=== PATIENT | female | born 1995 | race Caucasian/White ===

== ENCOUNTER 2019-08-18 14:51 | Emergency (ER) | payer OTHER ==
[~2019-08-18] VITALS: Ht 160 cm; Wt 53.0 kg
[2019-08-18 15:49] LABS: BASO % 0 % (0-3); EOS % 0 % (0-3); HEMATOCRIT 39.5 % (36.0-47.0); HEMOGLOBIN 12.8 g/dL (12.0-15.5); LYMPH # 2.2 x10^3/uL (1.0-4.8); LYMPH % 17 % (24-48); MEAN CORPUSCULAR HEMOGLOBIN 29 pg (25-35); MEAN CORPUSCULAR HGB CONC 32 g/dL (31-37); MEAN CORPUSCULAR VOLUME 89 fL (79-100); MONO # 0.6 x10^3/uL (0.0-1.1); MONO % 5 % (0-9); NEUT # 9.7 x10^3uL (1.8-7.7); NEUT % 78 % (31-73); PLATELET COUNT 267 x10^3/uL (140-400); RED BLOOD COUNT 4.46 x10^6/uL (3.50-5.40); RED CELL DISTRIBUTION WIDTH 12.5 % (11.5-14.5); WHITE BLOOD COUNT 12.5 x10^3/uL (4.0-11.0)
[2019-08-18 15:56] LABS: CREATININE 0.7 mg/dL (0.6-1.0); GFR 103.7; POTASSIUM 3.5 mmol/L (3.5-5.1)
[2019-08-18 16:01] LABS: BACTERIA,URINE 0 /HPF (0-FEW); BILIRUBIN,URINE NEG (NEG); CLARITY,URINE CLEAR; COLOR,URINE YELLOW; GLUCOSE,URINE NEG (NEG); NITRITE,URINE NEG (NEG); RBC,URINE 20-40 /HPF (0-2); SQUAMOUS EPITHELIAL CELL,UR OCC /LPF; UROBILINOGEN,URINE 0.2 mg/dL (0.2 mg/dL); WBC,URINE OCC /HPF (0-4)
[2019-08-18 16:02] LABS: ALBUMIN 3.6 g/dL (3.4-5.0); TOTAL BILIRUBIN 0.7 mg/dL (0.2-1.0); TOTAL PROTEIN 7.1 g/dL (6.4-8.2)
[2019-08-18] MEDS ORDERED: IV NORMAL SALINE 1,000ML 1,000 ML IV ONE (16:15)
--- NOTE | 2019-08-18 16:26 | PHYS DOC ---
Past History Past Medical History: Ovarian Cyst Past Surgical History: No Surgical History Alcohol Use: Occasionally Social History Narrative: stopped drinking with poss positive test Adult General Chief Complaint Chief Complaint: ABDOMINAL PAIN HPI HPI Patient is a 24-year-old female presented ER today for evaluation of lower abdominal pain with vaginal bleeding. Patient said her last menstrual period was on july 23 last month. Patient stop her control medication on June last year, she is trying to get . Patient started having some spotting 3 days ago, she did home test today and noted that there is slightly positive so she came here for evaluation. Patient denies any fever. She had some cramping in her lower abdominal area. She denies any fever, no nausea vomiting. Review of Systems Review of Systems Constitutional: Denies fever or chills [] Eyes: Denies change in visual acuity, redness, or eye pain [] HENT: Denies nasal congestion or sore throat [] Respiratory: Denies cough or shortness of breath [] Cardiovascular: No additional information not addressed in HPI [] GI: Positive for abdominal pain, no nausea, vomiting, bloody stools or diarrhea [] : Denies dysuria or hematuria [] Musculoskeletal: Denies back pain or joint pain [] Integument: Denies rash or skin lesions [] Neurologic: Denies headache, focal weakness or sensory changes [] Endocrine: Denies polyuria or polydipsia [] All other systems were reviewed and found to be within normal limits, except as documented in this note. Current Medications Current Medications Current Medications Medications (Trade) Dose Ordered Sig/Franci Start Time Stop Time Status Last Admin Dose Admin Sodium Chloride 1,000 ml @ 1,000 mls/hr 1X ONCE 08/18/19 16:15 08/18/19 17:14 08/18/19 16:08 1,000 MLS/HR Allergies Allergies Allergies Coded Allergies Type Severity Reaction Last Updated Verified doxycycline Allergy Unknown 08/18/19 Yes Physical Exam Physical Exam Constitutional: Well developed, well nourished, no acute distress, non-toxic appearance. [] HENT: Normocephalic, atraumatic, bilateral external ears normal, oropharynx moist, no oral exudates, nose normal. [] Eyes: PERRLA, EOMI, conjunctiva normal, no discharge. [] Neck: Normal range of motion, no tenderness, supple, no stridor. [] Cardiovascular:Heart rate regular rhythm, no murmur [] Lungs & Thorax: Bilateral breath sounds clear to auscultation [] Abdomen: Bowel sounds normal, soft, There is tenderness to palpation at suprapubic area, no masses, no pulsatile masses. [] Skin: Warm, dry, no erythema, no rash. [] Back: No tenderness, no CVA tenderness. [] Extremities: No tenderness, no cyanosis, no clubbing, ROM intact, no edema. [] Neurologic: Alert and oriented X 3, normal motor function, normal sensory function, no focal deficits noted. [] Psychologic: Affect normal, judgement normal, mood normal. [] Current Patient Data Vital Signs Vital Signs Date Time Temp Pulse Resp B/P (MAP) Pulse Ox O2 Delivery O2 Flow Rate FiO2 08/18/19 15:50 67 20 112/67 (82) 99 Room Air 08/18/19 15:00 97.3 Lab Results Laboratory Tests Test 08/18/19 15:17 08/18/19 15:27 08/18/19 15:29 Urine Collection Type Unknown Urine Color Yellow Urine Clarity Clear Urine pH 6.0 Urine Specific [place] >=1.030 Urine Protein Neg (NEG-TRACE) Urine Glucose (UA) Neg mg/dL (NEG) Urine Ketones (Stick) Neg mg/dL (NEG) Urine Blood Large (NEG) Urine Nitrite Neg (NEG) Urine Bilirubin Neg (NEG) Urine Urobilinogen Dipstick 0.2 mg/dL (0.2 mg/dL) Urine Leukocyte Esterase Neg (NEG) Urine RBC 20-40 /HPF (0-2) Urine WBC Occ /HPF (0-4) Urine Squamous Epithelial Cells Occ /LPF Urine Bacteria 0 /HPF (0-FEW) Urine Mucus Slight /LPF POC Urine HCG, Qualitative hcg negative (Negative) White Blood Count 12.5 x10^3/uL (4.0-11.0) H Red Blood Count 4.46 x10^6/uL (3.50-5.40) Hemoglobin 12.8 g/dL (12.0-15.5) Hematocrit 39.5 % (36.0-47.0) Mean Corpuscular Volume 89 fL (79-100) Mean Corpuscular Hemoglobin 29 pg (25-35) Mean Corpuscular Hemoglobin Concent 32 g/dL (31-37) Red Cell Distribution Width 12.5 % (11.5-14.5) Platelet Count 267 x10^3/uL (140-400) Neutrophils (%) (Auto) 78 % (31-73) H Lymphocytes (%) (Auto) 17 % (24-48) L Monocytes (%) (Auto) 5 % (0-9) Eosinophils (%) (Auto) 0 % (0-3) Basophils (%) (Auto) 0 % (0-3) Neutrophils # (Auto) 9.7 x10^3uL (1.8-7.7) H Lymphocytes # (Auto) 2.2 x10^3/uL (1.0-4.8) Monocytes # (Auto) 0.6 x10^3/uL (0.0-1.1) Eosinophils # (Auto) 0.0 x10^3/uL (0.0-0.7) Basophils # (Auto) 0.0 x10^3/uL (0.0-0.2) Maternal Serum HCG Beta Subunit < 1 mIU/mL (0-6) Sodium Level 139 mmol/L (136-145) Potassium Level 3.5 mmol/L (3.5-5.1) Chloride Level 103 mmol/L (98-107) Carbon Dioxide Level 26 mmol/L (21-32) Anion Gap 10 (6-14) Blood Urea Nitrogen 16 mg/dL (7-20) Creatinine 0.7 mg/dL (0.6-1.0) Estimated GFR (Cockcroft-Gault) 103.7 BUN/Creatinine Ratio 23 (6-20) H Glucose Level 119 mg/dL (70-99) H Calcium Level 8.0 mg/dL (8.5-10.1) L Total Bilirubin 0.7 mg/dL (0.2-1.0) Aspartate Amino Transferase (AST) 16 U/L (15-37) Alanine Aminotransferase (ALT) 31 U/L (14-59) Alkaline Phosphatase 51 U/L (46-116) Total Protein 7.1 g/dL (6.4-8.2) Albumin 3.6 g/dL (3.4-5.0) Albumin/Globulin Ratio 1.0 (1.0-1.7) EKG EKG [] Radiology/Procedures Radiology/Procedures [][address] [address] IMAGING REPORT Signed PATIENT: MARÍA LORENZANACOUNT: [id number] : 1995 LOCATION: ER AGE: 24 SEX: F EXAM STATUS: REG ER ORD. PHYSICIAN: BAKARI DE LEÓN DO REASON: LOWER ABDOMINAL PAIN PROCEDURE: CT ABD PELV W/ IV CONTRST ONLY CT ABD PELV W/ IV CONTRST ONLY Indication: Lower abdominal pain and cramping. Vaginal bleeding. Exposure: One or more of the following individualized dose reduction techniques were utilized for this examination: 1. Automated exposure control 2. Adjustment of the mA and/or kV according to patient size 3. Use of iterative reconstruction technique. Technique: Intravenous contrast was given. No oral contrast per request. Comparison: None FINDINGS: Lung bases are clear. No focal liver lesion. Mild low-attenuation zone surrounding portal veins diffusely (periportal halo sign). Spleen unremarkable. Pancreas appears unremarkable. No evidence of adrenal mass. Kidneys demonstrate symmetric enhancement without hydronephrosis or focal mass. Gallbladder is contracted, without calcified stone. Aorta is nonaneurysmal. No significant lymph node enlargement is identified. Stomach is not distended. No significant small bowel distention. Distal small bowel loops are mildly fluid-filled. Moderate stool within the colon. No evidence of acute colitis. The appendix is not clearly visualized. Trace free pelvic fluid. This could just be physiologic. Mild urinary bladder wall thickening, fairly uniform and possibly due to nondistention. No definite pelvic mass. Vertebral body height is maintained. Minimal retrolisthesis of L4 on L5, likely degenerative. No aggressive bone destruction. IMPRESSION: 1. Mild periportal hypoattenuation. This is nonspecific with a broad differential but common etiologies could include congestion or hepatitis. Correlate clinically. 2. Mild fluid distention of distal small bowel loops, possibly a mild ileus. No obstructive bowel gas pattern. 3. Trace free pelvic fluid, probably physiologic. Electronically signed by: Ruddy Joseph MD (08/18/2019 5:03 PM) [id number] DICTATED AND SIGNED BY: RUDDY JOSEPH MD DATE: 08/18/19 5612 CC: CARLOS A BEATTY MD; DE LEÓN,PETER T DO ~ Course & Med Decision Making Course & Med Decision Making Pertinent Labs and Imaging studies reviewed. (See chart for details) Patient is a 24-year-old female who was evaluated today due to abdominal pain and menstruation cramping. She is not , CT scan of abdomen and pelvic did not reveal any acute problem. She will be discharged home, she will need to follow with her family doctor for further evaluation if her symptoms do not improve. Dragon Disclaimer Dragon Disclaimer This electronic medical record was generated, in whole or in part, using a voice recognition dictation system. Departure Departure: Impression: Primary Impression: Abdominal pain Disposition: HOME, SELF-CARE Condition: STABLE Referrals: CARLOS A BEATTY MD (PCP) please follow up with your doctor in a few days if you are not improved.. Patient Instructions: Abdominal Pain Additional Instructions: Thank you for visiting our Emergency Department. We appreciate you trusting us with your care. If any additional problems come up don't hesitate to return to visit us. Please follow up with your primary care provider so they can plan additional care if needed and know about the problem that you had. If symptoms worsen come back to the Emergency Department. Any concerning symptoms that start such as chest pain, shortness of air, weakness or numbness on one side of the body, running high fevers or any other concerning symptoms return to the ER. BAKARI DE LEÓN DO Aug 18, 2019 16:26
[2019-08-18] MEDS ORDERED: CONTRAST GIVEN MC PRN (16:30)
[2019-08-18] MEDS ORDERED: IOHEXOL 300 MG/ML 75 ML VIAL. IV ONE (16:30)
--- NOTE | 2019-08-18 17:06 | RAD ---
CT ABD PELV W/ IV CONTRST ONLY Indication: Lower abdominal pain and cramping. Vaginal bleeding. Exposure: One or more of the following individualized dose reduction techniques were utilized for this examination: 1. Automated exposure control 2. Adjustment of the mA and/or kV according to patient size 3. Use of iterative reconstruction technique. Technique: Intravenous contrast was given. No oral contrast per request. Comparison: None FINDINGS: Lung bases are clear. No focal liver lesion. Mild low-attenuation zone surrounding portal veins diffusely (periportal halo sign). Spleen unremarkable. Pancreas appears unremarkable. No evidence of adrenal mass. Kidneys demonstrate symmetric enhancement without hydronephrosis or focal mass. Gallbladder is contracted, without calcified stone. Aorta is nonaneurysmal. No significant lymph node enlargement is identified. Stomach is not distended. No significant small bowel distention. Distal small bowel loops are mildly fluid-filled. Moderate stool within the colon. No evidence of acute colitis. The appendix is not clearly visualized. Trace free pelvic fluid. This could just be physiologic. Mild urinary bladder wall thickening, fairly uniform and possibly due to nondistention. No definite pelvic mass. Vertebral body height is maintained. Minimal retrolisthesis of L4 on L5, likely degenerative. No aggressive bone destruction. IMPRESSION: 1. Mild periportal hypoattenuation. This is nonspecific with a broad differential but common etiologies could include congestion or hepatitis. Correlate clinically. 2. Mild fluid distention of distal small bowel loops, possibly a mild ileus. No obstructive bowel gas pattern. 3. Trace free pelvic fluid, probably physiologic. Electronically signed by: Ruddy Joseph MD (08/18/2019 5:03 PM) [id number]
[2019-08-18 17:18] VITALS: BP 110/56
== END 2019-08-18 17:30 | disposition home or self-care (01) ==
LOC: ER 14:51
DX: R10.30 Lower abdominal pain, unspecified (principal); N93.9 Abnormal uterine and vaginal bleeding, unspecified; Z88.1 Allergy status to other antibiotic agents
CPT/HCPCS: 36415; 74177; 80053; 81001; 81025; 84702; 85025; 99285; Q9967; J7030

== ENCOUNTER 2021-04-19 07:39 | Emergency (ER) | payer OTHER ==
[~2021-04-19] VITALS: Ht 160 cm; Wt 61.1 kg
--- NOTE | 2021-04-19 08:01 | PHYS DOC ---
Past History Past Medical History: Ovarian Cyst Past Medical History irregular periods Past Surgical History: No Surgical History Alcohol Use: Rarely General Adult EDM: Chief Complaint: MECHANICAL FALL HPI: HPI: 25-year-old female presents to the emergency department after a mechanical slip and fall at her home earlier today where she fell backwards, landing on her neck and tailbone area. She complains of pain over her tailbone as well as the back of her neck from the fall. She denies any head trauma, loss of consciousness, blood thinner use. She further denies any pain anywhere else. She denies chance of . Has not taken anything for pain this morning. The patient denies nausea, vomiting, fever, chills, chest pain, shortness of breath, abdominal pain, or any other complaints. Review of Systems: Review of Systems: ROS is otherwise negative except for what was mentioned in the HPI Family History: Family History: Noncontributory Allergies: Allergies: Allergies Coded Allergies Type Severity Reaction Last Updated Verified doxycycline Allergy Unknown 08/18/19 Yes Physical Exam: PE: Constitutional: No acute distress, non-toxic appearance. HENT: Atraumatic, bilateral external ears normal, nose normal. Eyes: PERRLA, EOMI, conjunctiva normal, no discharge. Neck: Normal range of motion, supple, no stridor. No cervical spinal tenderness to palpation Cardiovascular: Heart rate regular rhythm. 2+ radial pulses Lungs & Thorax: No respiratory distress, symmetrical expansion. Abdomen: Soft, no tenderness Skin: Warm, dry. Extremities: No tenderness, no cyanosis, ROM intact, no edema. Neurologic: Alert and oriented X 3, normal motor function, normal sensory function, no focal deficits noted. Non ataxic gait. GCS 15. Psychologic: Affect normal, judgment normal, mood normal. Current Patient Data: Vital Signs: Vital Signs Date Time Temp Pulse Resp B/P (MAP) Pulse Ox O2 Delivery O2 Flow Rate FiO2 04/19/21 07:43 98.0 80 16 130/79 (96) 96 Room Air Radiology/Procedures: Radiology/Procedures: XR SACRUM AND COCCYX 2+VIEWS History: Trauma, fall and tailbone pain. Comparison: CT abdomen and pelvis 08/18/2019 Technique: 3 views of the sacrum and coccyx. Findings: Osseous mineralization is normal. There are irregular lucencies through the fir st and second coccygeal segments with posterior endplate irregularity at the second coccygeal segment seen on the lateral view. This is new from comparison CT. The sacrococcygeal alignment is unchanged from prior. Hips and pubic rami are intact. Lower lumbar spine as unremarkable. No significant degenerative changes. Soft tissues are unremarkable. Impression: 1. Irregular appearance of the first and second coccygeal segments concerning for fracture. Electronically signed by: Lionel García MD (04/19/2021 8:54 AM). T CERVICAL SPINE WO dated 04/19/2021 8:39 AM Indication:Reason: TRAUMA- FELL, RIGHT SIDED NECK PAIN / Spl. Instructions: / History: Comparison: No comparison is available. Technique: Helical noncontrast images were performed. Sagittal and coronal reconstructions were obtained. One or more of the following individualized dose reduction techniques were utilized for this examination: 1. Automated exposure control 2. Adjustment of the mA and/or kV according to patient size 3. Use of iterative reconstruction technique Findings: Alignment is normal. There is no loss of vertebral body height or prevertebral soft tissue swelling. No fracture line is seen. Intervertebral disks are not narrowed. Evaluation of the soft tissue components of the canal is limited without intrathecal contrast. There is no apparent destructive process. IMPRESSION: No acute abnormality. Electronically signed by: Bob Perrin Jr., MD (04/19/2021 8:50 AM) Heart Score: C/O Chest Pain: No Course & Med Decision Making: Course & Med Decision Making Patient with a fracture of the coccyx on imaging, her neck scan was negative, she was discharged with instructions to follow-up with primary care physician as needed Departure Departure: Impression: Primary Impression: Fracture of coccyx Additional Impression: Neck contusion Disposition: 01 HOME / SELF CARE / HOMELESS Condition: STABLE Referrals: CARLOS A BEATTY MD (PCP) Patient Instructions: Tailbone Injury, [id number] Additional Instructions: You are seen in the emergency department for a fractured coccyx or tailbone. Please go to [facility] or [facility] and warehouse picker a donut pillow for you to sit on. You may use ice as needed and ibuprofen and Tylenol as needed for pain every 4-6 hours. Please follow-up with your primary care provider in the next week for further treatment You were seen in the emergency department and your health condition was deemed not to require admission to the hospital. It is important to realize that we can only evaluate you during the time that you are in her department. Occasionally health conditions can worsen upon leaving the emergency department. If this were to happen, please return to and allow us the opportunity to reevaluate you. It is a pleasure to take care of your health needs. Return to the ER if your symptoms worsen, do not improve, or if you develop additional symptoms that are concerning to you You were seen in the emergency department for a musculoskeletal problem that will likely get better over time. You may utilize something called the "RICE" protocol (Rest, Ice, Compresses, Elevation) to help alleviate your pain: - Hold off on doing intense exercise that may make the pain worse. Sometimes gentle stretching can provide relief, but be careful to avoid further injury. It is important to perform gentle range of motion exercises to prevent stiff joints and chronic pain. - Use ice packs over the affected area to help decrease your pain. Ice can work as a numbing agent over your painful area. For the first 24 hours, apply ice 2-4 times per day for a maximum 15-20 minutes each time. Ice should be in a plastic bag. - You may use warm compresses to help improve blood flow and decrease swelling. Alternating with ice packs and warm compresses works well. - You may elevate the affected area to help improve drainage and reduce swelling, which will also help your pain. JESENIA ALVARADO DO Apr 19, 2021 08:01
[2021-04-19] MEDS: IBUPROFEN 400 MG TABLET. PO ONE (08:35)
--- NOTE | 2021-04-19 08:53 | RAD ---
CT CERVICAL SPINE WO dated 04/19/2021 8:39 AM Indication:Reason: TRAUMA- FELL, RIGHT SIDED NECK PAIN / Spl. Instructions: / History: Comparison: No comparison is available. Technique: Helical noncontrast images were performed. Sagittal and coronal reconstructions were obtai robert. One or more of the following individualized dose reduction techniques were utilized for this examinat ion: 1. Automated exposure control 2. Adjustment of the mA and/or kV according to patient size 3. Use of iterative reconstruction technique Findings: Alignment is normal. There is no loss of vertebral body height or prevertebral soft tissue swelling. No fracture line is seen. Intervertebral disks are not narrowed. Evaluation of the soft tissue compon ents of the canal is limited without intrathecal contrast. There is no apparent destructive process. IMPRESSION: No acute abnormality. Electronically signed by: Bob Perrin Jr., MD (04/19/2021 8:50 AM) [facility]
--- NOTE | 2021-04-19 08:56 | RAD ---
XR SACRUM AND COCCYX 2+VIEWS History: Trauma, fall and tailbone pain. Comparison: CT abdomen and pelvis 08/18/2019 Technique: 3 views of the sacrum and coccyx. Findings: Osseous mineralization is normal. There are irregular lucencies through the first and second coccygea l segments with posterior endplate irregularity at the second coccygeal segment seen on the lateral v iew. This is new from comparison CT. The sacrococcygeal alignment is unchanged from prior. Hips and p ubic rami are intact. Lower lumbar spine as unremarkable. No significant degenerative changes. Soft t issues are unremarkable. Impression: 1. Irregular appearance of the first and second coccygeal segments concerning for fracture. Electronically signed by: Lionel García MD (04/19/2021 8:54 AM) [id number]
[2021-04-19 09:28] VITALS: BP 122/67
== END 2021-04-19 09:32 | disposition home or self-care (01) ==
LOC: ER 07:39
DX: S32.2XXA Fracture of coccyx, initial encounter for closed fracture (principal); S10.93XA Contusion of unspecified part of neck, initial encounter; Z88.1 Allergy status to other antibiotic agents; W01.0XXA Fall on same level from slipping, tripping and stumbling without subsequent striking against object, initial encounter; Y93.89 Activity, other specified; Y92.098 Other place in other non-institutional residence as the place of occurrence of the external cause; Y99.8 Other external cause status
CPT/HCPCS: 72125; 72220; 81025; 99284-25